=== PATIENT | female | born 1985 | race African-American/Black ===

== ENCOUNTER 2022-05-30 23:55 | Emergency (ER) | payer SELFPAY ==
[~2022-05-30] VITALS: Ht 157.5 cm; Wt 59.0 kg
[2022-05-31] MEDS ORDERED: CYCLOBENZAPRINE5 MG PO (00:26)
[2022-05-31] MEDS ORDERED: NAPROSYN500 MG PO (00:26)
[2022-05-31] MEDS ORDERED: KETOROLAC TROMETHAMINE 60 MG/2 ML VIAL IM ONE (00:30)
== END 2022-05-31 01:01 | disposition home or self-care (01) ==
LOC: ER 05-31 00:12
DX: G44.209 Tension-type headache, unspecified, not intractable (principal); M54.12 Radiculopathy, cervical region; M25.512 Pain in left shoulder; R20.0 Anesthesia of skin
CPT/HCPCS: 99282; J1885